=== PATIENT | female | born 2000 | race Caucasian/White ===

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

== ENCOUNTER → 2022-01-03 13:55 | Outpatient (BNVA) | payer MEDICAID, SELFPAY | PROVIDERS: PCP Family Medicine; Visit Provider Nurse Practitioner Family | DX: I96 Gangrene, not elsewhere classified (principal); L89.153 Pressure ulcer of sacral region, stage 3 | CPT/HCPCS: 11042 ==

== ENCOUNTER → 2022-01-24 14:00 | Outpatient (BNVA) | payer MEDICAID, SELFPAY | PROVIDERS: PCP Family Medicine; Visit Provider Nurse Practitioner Family | DX: I96 Gangrene, not elsewhere classified (principal); L89.154 Pressure ulcer of sacral region, stage 4 | CPT/HCPCS: 11042; A6219 ==

== ENCOUNTER 2022-02-12 12:09 | Emergency (ER) | payer MEDICAID, SELFPAY ==
[2022-02-12] VITALS (24 sets, daily range): BP systolic 99–114; BP diastolic 65–81; PULSE 102–115; RESP 16–20; O2SAT 98–100; BMI 13.8
--- NOTE | 2022-02-12 12:40 | XR_ITS ---
WS: [id number] Exam: XR chest 1V portable [id number] Date/Time of Exam: 02/12/2022 12:44 PM Reason For Exam: fever Comparison 10/25/2019. The lungs are fully expanded and clear. Cardiomediastinal silhouette is unremarkable. The thoracic sp ine fusion noted with the posterior rods and pedicle screws at all levels. Mid and lower thoracic sco liosis with right convexity. XR/XR chest 1V portable [id number] IMPRESSION: 1. No acute cardiopulmonary finding. No change.
--- NOTE | 2022-02-12 12:42 | W.ED.AMS ---
HPI - Altered Mental Status General: Chief Complaint: Altered Mental Status Stated Complaint: DECREASED LOC Time Seen by Provider: 02/12/22 12:37 Source: family, EMS and other (School nurse) History of Present Illness: History is provided by EMS, school nurse as well as later in the interview the patient's mother. 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 She states cooled RN contacted primary care doctor and then subsequently EMS because she was concerned about a change in the child's level of alertness and responsiveness today. State that she is normally very vigorous eater and also response to any kind of physical stimulus with yelling and screaming and today she did none of of those activities. He apparently has a longstanding history of a sacral wound and was dismissed from wound care recently because of displeasure displayed by the mother and some of the interactions at that facility. Mother arrived after a period of time and related that she seemed fine when she went to school today where she would not of sent her to school per mother. Dates that she did have a wet diaper this morning and she is had no fevers at home. No one else has been ill at home. Review of Systems Const: Denies: fever(s) or chills Resp: Denies: productive cough or non-productive cough GI: Denies: vomiting or diarrhea [facility] ED PFSH: Medical History (Updated 02/12/22 @ 15:39 by Sebastián Padilla DO) Cerebral palsy Seizures Social History Smoking and tobacco status: never smoked Physical Exam Narrative: Patient is a small underweight occasion female who is in a flexed position at elbows as well as flexed at the hips and knees. Does not respond to physical or verbal stimulus. Color appears normal. There is no ecchymosis, diaphoresis. Const: NUTRITIONAL APPEARANCE: overweight HENMT: COMMON NORMALS: normocephalic, atraumatic, Normal nasal mucous membranes and turbinates present and moist oral mucous membranes HEAD & SCALP: normocephalic and atraumatic NOSE: Normal nasal mucous membranes and turbinates present Eye: COMMON NORMALS: Equal, round and reactive pupils present and conjunctivae normal CONJUNCTIVA: Yes conjunctivae normal PUPIL: Yes Equal, round and reactive pupils present Neck/C-Spine: COMMON NORMALS: no lymphadenopathy, supple and no meningeal signs Chest: COMMONS NORMALS: normal inspection of the chest Resp: COMMON NORMALS: normal respiratory effort, No retractions, clear to auscultation bilaterally and percussion normal AUSCULTATION: clear to auscultation bilaterally PERCUSSION: percussion normal Cardio: COMMON NORMALS: regular rate, regular rhythm and Peripheral pulses 2+ throughout RATE: regular rate RHYTHM: regular rhythm PERIPHERAL PULSES: Peripheral pulses 2+ throughout GI: COMMON NORMALS: Soft to palpation and non-tender PALPATION: Yes Soft to palpation Back/Pelvis: SACRUM: other (She has a approximately 3 cm in diameter skin ulcer at the sacrum. There i) Extremity: COMMON NORMALS: capillary refill normal and no pedal edema Neuro: YULY COMA SCALE: other (Nonverbal. No verbal response to stimulus.) COMMON NORMALS: deep tendon reflexes 2+ bilaterally MENINGEAL SIGNS: Yes no meningeal signs Skin: COMMON NORMALS: no jaundice NARRATIVE SKIN EXAM: Skin ulcer at sacrum. Decreased skin turgor Course Reevaluation(s): Reevaluation #1: Patient is now back at her baseline. No new or focal findings. The patient is spontaneous eye opening and verbalization etc. and per mother this is her usual state of health. Reviewed current findings all which are reassuring and do not reveal any evidence of infection etc. at this time. Additional discussion with mother who seems very reasonable during our interaction states that mother wonders if she had a seizure because her clinical state at arrival here was similar to that that mother states she displays after a seizure and that she is poked postictal for period of time. The school RN denied any knowledge of seizure at her presentation but that certainly is a strong consideration given her lack of significant findings today and her recovery back to her baseline. Mother is comfortable and desires to take her home at this time and I see no reason that she should not do so as there is no evidence of ongoing emergency medical condition. Mother is planning on making arrangements to continue wound care on her own. Time: 15:35 Vital Signs: Vital signs: Vital Signs Pulse Rate 102 H 02/12/22 13:01 Respiratory Rate 16 02/12/22 13:01 Blood Pressure 99/81 02/12/22 15:10 Pulse Oximetry 99 02/12/22 15:10 Oxygen Delivery Me thod 02/12/22 13:01 MDM - Altered Mental Status Medical Decision Making Patient with chronic disability due to cerebral palsy exported to our facility from her school with concerns about alteration in her mental status. Her work-up in the emergency department was unrevealing for any findings to suggest infection or other concerns. She recovered back to her baseline without any intervention other than IV fluids. It is mother speculation is certainly reasonable that she may have been postictal as she is has a history of seizure disorder as well. Mother states that she has been very faithful to all her medications including her anticonvulsants but she does occasionally have seizures despite that. She also has a skin ulcer consistent with a pressure ulcer on her sacrum and her without any evidence of infection at this time. Mother is planning on continuing wound care. She is stable at this time to be discharged and mother voiced understanding and also voices acknowledgment of return precautions. Should additionally note that the mother's been very straightforward and cooperative and reasonable with my interactions. She does tend to be somewhat loud and direct and some may perceive that is being argumentative but I did not find that to be an issue during our interactions. Medical Records I reviewed the patient's medical records. Lab Data I reviewed the patient's lab results. 02/12/22 12:29 02/12/22 12:29 Radiology Impressions Chest X-Ray 02/12/22 12:40 IMPRESSION: 1. No acute cardiopulmonary finding. No change. Laboratory Results WBC 9.6 10^3/uL (4.5-13.0) 02/12/22 12: RBC 4.16 10^6/uL (4.1-5.3) 02/12/22 12:29 Hgb 12.4 g/dL (11.5-15.3) 02/12/22 12:29 Hct 38.2 % (37.0-47.0) 02/12/22 12:29 MCV 91.8 fl (81-99) 02/12/22 12: MCH 29.8 pg (28.0-34.0) 02/12/22 12: MCHC 32.5 g/dL (30.0-36.0) 02/12/22 12: RDW 12.5 % (12.1-15.1) 02/12/22 12:29 Plt Count 262 10^3/cmm (130-400) 02/12/22 12: MPV 8.4 fL (7.4-10.4) 02/12/22 12: Neut % (Auto) 75.0 % 02/12/22 12: Lymph % (Auto) 15.8 % 02/12/22 12: [place] % (Auto) 7.7 % 02/12/22 12: Eos % (Auto) 0.8 % 02/12/22 12: Baso % (Auto) 0.3 % 02/12/22 12: Neut # (Auto) 7.19 10^3/uL (1.8-8.0) 02/12/22 12: Lymph # (Auto) 1.5 10^3/uL (1.5-6.5) 02/12/22 12: [place] # (Auto) 0.7 10^3/uL (0.2-0.9) 02/12/22 12: Eos # (Auto) 0.1 10^3/uL (0.0-0.8) 02/12/22 12: Baso # (Auto) 0.0 10^3/uL (0.0-0.1) 02/12/22 12: Nucleated RBC % (auto) 0 % 02/12/22 12: Nucleated RBCs # 0.0 /100WBC 02/12/22 12: Sodium 141 mmol/L (136-145) 02/12/22 12: Potassium 3.8 mmol/L (3.5-5.1) 02/12/22 12: Chloride 105 mmol/L (98-107) 02/12/22 12: Carbon Dioxide 26 mmol/L (22-29) 02/12/22 12: Anion Gap 13.8 (5-19) 02/12/22 12: BUN 4 mg/dL (6-20) L 02/12/22 12: Creatinine 0.4 mg/dL (0.5-0.9) L 02/12/22 12: GFR Calculation 205.6 mL/min (90-130) H 02/12/22 12: Glucose 84 mg/dL (65-115) 02/12/22 12: Calculated Osmolality 288 mOsm/kg (285-295) 02/12/22 12:29 Calcium 9.3 mg/dL (8.5-10.5) 02/12/22 12:29 Total Bilirubin 0.2 mg/dL (0.15-1.2) 02/12/22 12:29 AST 16 U/L (0-32) 02/12/22 12:29 ALT 13 U/L (0-33) 02/12/22 12:29 Alkaline Phosphatase 117 U/L (35-105) H 02/12/22 12:29 Total Protein 7.7 g/dL (6.6-8.7) 02/12/22 12:29 Albumin 3.9 g/dL (3.5-5.2) 02/12/22 12:29 Globulin 3.8 g/dL (1.3-4.6) 02/12/22 12:29 Urine Color Yellow (Yellow) 02/12/22 13:20 Urine Appearance Clear (CLEAR) 02/12/22 13:20 Urine pH 7 (5-7) 02/12/22 13:20 Ur Specific [place] 1.010 (1.005-1.030) 02/12/22 13:20 Urine Protein Neg (Negative) 02/12/22 13:20 Urine Glucose (UA) Norm (Normal) 02/12/22 13:20 Urine Ketones Negative (Negative) 02/12/22 13:20 Urine Blood Neg (Negative) 02/12/22 13:20 Urine Nitrate Negative (Negative) 02/12/22 13:20 Urine Bilirubin Neg (Negative) 02/12/22 13:20 Urine Urobilinogen Norm mg/dL (Negative) 02/12/22 13:20 Ur Leukocyte Esterase Negative (Negative) 02/12/22 13:20 Influenza Type A Ag negative (Negative) 02/12/22 13:06 Influenza Type B Ag negative (Negative) 02/12/22 13:06 SARS-CoV-2 Ag (Rapid) Negative (Negative) 02/12/22 13:06 Discharge Plan Discharge Patient Disposition: Home Clinical Impression: Cerebral palsy, Seizures, Pressure ulcer of sacrum Condition: Stable Prescriptions: No Action Saline Wound Wash 0.9 % solution 500 ml miscellaneous BID Qty: 210 2RF acetaminophen [Children's Tylenol] 160 mg/5 mL Suspension 160 - 320 mg PO Q6H PRN (Reason: Pain) baclofen 10 mg tablet See Rx Instructions .ROUTE .COMPLEX Rx Instructions: 15mg po every am and 20mg po every evening medroxyprogesterone 150 mg/mL suspension 150 mg IM .EVERY 3 MONTHS clonazepam 0.5 mg tablet,disintegrating See Rx Instructions .ROUTE .COMPLEX Rx Instructions: 1 tab po daily as needed for seizure or more than 3 seizures in one hour as needed cholecalciferol (vitamin D3) [D-Vi-Marguerite] 10 mcg/mL (400 unit/mL) drops 10 mcg PO BID clobazam 10 mg tablet 10 mg PO BID Epidiolex 100 mg/mL solution 300 mg PO BID Rx Instructions: ([id number]) Valtoco 10 mg/spray (0.1 mL) spray,non-aerosol See Rx Instructions .ROUTE .COMPLEX Rx Instructions: one spray into one nostril for prolonged seizures three minutes or more than 3 seizures per hour lactulose 10 gram/15 mL Solution 15 ml PO BID Discharge Orders: Discharge ED (Routine); Ordered 02/12/22 Ordered By: Sebastián Padilla Referrals: Eden Lackey DO [Primary Care Provider] - Discharge Diet: Usual diet Discharge Activity: Resume usual activity Patient Instructions: Opioid Safety, Pain Management Activity Restrictions/Additional Instructions: Follow-up with wound care as you have already planned. Continue all usual medications. If your child develops fever, persistent seizures, or any concerns at any time return to this or the nearest emergency department. Coding Level of Care Code ED Siebel Architect for Mari Verdugo Exam Comprehensive
--- NOTE | 2022-02-12 12:52 | PC.NURSE ---
Pt arrived via ems, mother at bedside after 20 minutes. Pt mother is aggressive with staff stating all the doctors before and people never listened mother was redirected and staff continue to be met with aggressive words and demeaning speech.
[2022-02-12 12:55] LABS: Basophils % 0.3 %; Eosinophils # 0.1 10^3/uL (0.0-0.8); Eosinophils % 0.8 %; Hematocrit 38.2 % (37.0-47.0); Hemoglobin 12.4 g/dL (11.5-15.3); Lymphocytes # 1.5 10^3/uL (1.5-6.5); Lymphocytes % 15.8 %; Mean Corpuscular HGB Conc 32.5 g/dL (30.0-36.0); Mean Corpuscular Hemoglobin 29.8 pg (28.0-34.0); Mean Corpuscular Volume 91.8 fl (81-99); Mean Platelet Volume 8.4 fL (7.4-10.4); Monocytes # 0.7 10^3/uL (0.2-0.9); Monocytes % 7.7 %; Neutrophils # 7.19 10^3/uL (1.8-8.0); Nucleated Red Blood Cells % 0 %; Platelet Count 262 10^3/cmm (130-400); Red Blood Count 4.16 10^6/uL (4.1-5.3); Red Cell Distribution Width 12.5 % (12.1-15.1); White Blood Count 9.6 10^3/uL (4.5-13.0)
[2022-02-12] MEDS: lactated ringers 500 ML 999 ML IV (13:06)
[2022-02-12 13:13] LABS: Alanine Aminotransferase 13 U/L (0-33); Albumin Level 3.9 g/dL (3.5-5.2); Alkaline Phosphatase 117 U/L (35-105); Anion Gap 13.8 (5-19); Aspartate Amino Transferase 16 U/L (0-32); Blood Urea Nitrogen 4 mg/dL (6-20); Calcium 9.3 mg/dL (8.5-10.5); Carbon Dioxide 26 mmol/L (22-29); Chloride 105 mmol/L (98-107); Creatinine Clr Calc Pharmacy 86.6618; Globulin 3.8 g/dL (1.3-4.6); Glomerular Filtration Rate 205.6 mL/min (90-130); Glucose 84 mg/dL (65-115); Osmolality Calculated 288 mOsm/kg (285-295); Potassium 3.8 mmol/L (3.5-5.1); Sodium 141 mmol/L (136-145); Total Bilirubin 0.2 mg/dL (0.15-1.2); Total Protein 7.7 g/dL (6.6-8.7)
[2022-02-12 13:32] LABS: Add Urine Microscopic? NO; Charge for UA Resulting for Rev
[2022-02-12 13:40] LABS: Bilirubin Urine Neg (Negative); Blood Urine Neg (Negative); Glucose Urine UA Norm (Normal); Ketones Urine Negative (Negative); Leukocyte Esterase Urine Negative (Negative); Nitrate Urine Negative (Negative); Protein Urine Neg (Negative); Urine Appearance Clear (CLEAR); Urine Color Yellow (Yellow); Urobilinogen Urine Norm (Negative); pH Urine 7 (5-7)
[2022-02-12 13:45] LABS: Influenza A by IFA negative (Negative); Influenza B by IFA negative (Negative)
[2022-02-12 14:25] LABS: SARS Covid-2 Antigen Negative (Negative)
== END 2022-02-12 16:00 | disposition home or self-care (01) ==
PROVIDERS: Emergency Provider Emergency Medicine; PCP Family Medicine
DX: G80.9 Cerebral palsy, unspecified (principal); R56.9 Unspecified convulsions; L89.159 Pressure ulcer of sacral region, unspecified stage
CPT/HCPCS: 71045; 80053; 81003; 85025; 87040; 87426; 87804; 96360; 99284; J7120

== ENCOUNTER 2022-02-20 11:10 | Emergency (ER) | payer MEDICAID, SELFPAY ==
[2022-02-20 11:15] VITALS: BP 82/57; PULSE 117; RESP 19; TEMP 36.8; O2SAT 99; BMI 16.9
[2022-02-20 11:20] VITALS: BP 92/62; PULSE 109; RESP 16; TEMP 37; O2SAT 97
--- NOTE | 2022-02-20 11:39 | CTR_ITS ---
PROCEDURE INFORMATION: Exam: CT Abdomen And Pelvis With Contrast Exam date and time: 02/20/2022 2:01 PM Age: 21 years old Clinical indication: Bloating; Prior surgery; Additional info: Abdominal distension TECHNIQUE: Imaging protocol: Computed tomography of the abdomen and pelvis with contrast. Radiation optimization: All CT scans at this facility use at least one of these dose optimization techniques: automated exposure control; mA and/or kV adjustment per patient size (includes targeted exams where dose is matched to clinical indication); or iterative reconstruction. Contrast material: OMNI 350; Contrast volume: 60 ml; Contrast route: INTRAVENOUS (IV); COMPARISON: CR XR hip BI 3-4V wo/w pel [id number] 09/07/2020 12:44 PM RADIATION DOSE METRICS: Total DLP (mGy-cm): 234.72 FINDINGS: Lungs: There is some streaky linear densities along the lower paravertebral gutters likely secondary to linear atelectasis. Liver: Normal. No mass. Gallbladder and bile ducts: Normal. No calcified stones. No ductal dilation. Pancreas: Pancreas not well discerned due to limitations of the study but no abnormalities detected. Spleen: Normal. No splenomegaly. Adrenal glands: Normal. No mass. Kidneys and ureters: Small cortical cyst superior pole left kidney likely benign otherwise kidneys are unremarkable. Stomach and bowel: There is a large amount of stool throughout the colon which is somewhat distended and likely indicating some degree of constipation. Appendix: No evidence of appendicitis. Intraperitoneal space: Unremarkable. No free air. No significant fluid collection. Vasculature: Unremarkable. No abdominal aortic aneurysm. Lymph nodes: Unremarkable. No enlarged lymph nodes. Urinary bladder: There is a Perez catheter balloon within the urinary bladder which is mildly distended. Reproductive: Unremarkable as visualized. Bones/joints: Assist assessment is somewhat limited due to paucity of body fat and extensive streak artifact emanating from patient's spinal hardware. Moderate S scoliosis of the thoracolumbar spine convex to the patient's right stabilized by spinal rods and transpedicular screws. There is a 4 x 3 cm fluid collection in the right lower pelvis that may represent fluid within an expanded endometrial cavity of the uterus which is deviated to the patient's right and should be further assessed on pelvic ultrasound exam. Soft tissues: Unremarkable. CT/CT abdomen pelvis w con* [id number] IMPRESSION: 1. Technically limited examination. No acute abdominal findings. 2. Large amount of retained stool throughout the colon likely reflecting some degree of constipation. 3. 4 x 3 cm fluid collection right lower pelvis that may represent fluid within a dilated uterine cavity for which follow-up nonemergent pelvic ultrasound recommended for further assessment. 4. Scoliosis treated with prior spinal instrumentation. 5. Mildly distended urinary bladder with Perez catheter balloon present. Please check for patency.
--- NOTE | 2022-02-20 11:41 | W.ED.FEMALGU ---
HPI - Female Genitourinary General: Chief complaint: Urogenital-Female Stated complaint: Trouble urinating Time Seen by Provider: 02/20/22 11:41 History of Present Illness: 21-year-old female who is nonverbal due to cerebral palsy. History is obtained from her mother. The patient has had abdominal distention since yesterday. Mom states she had a large wet diaper last night but has not produced any urine since last night. She does have history of constipation and takes lactulose but mom tried to digitally disimpact her this morning without any stool in the rectum. With examination, the child does cry. She is not had a fever. She said no vomiting. Review of Systems General: Reports: ROS unobtainable due to medical condition PFSH ED PFSH: Medical History (Updated 02/20/22 @ 17:22 by Whitney Tony MD) Cerebral palsy Seizures Social History Smoking and tobacco status: never smoked Physical Exam Const: COMMON NORMALS: alert HENMT: OTHER: Head is atraumatic. Mucous membranes are moist. Conjunctiva pink Eye: COMMON NORMALS: no scleral icterus GENERAL EYE: appearance normal, both eyes and all related structures Neck/C-Spine: COMMON NORMALS: supple and no JVD Chest: COMMONS NORMALS: normal inspection of the chest and normal palpation of entire chest wall Resp: COMMON NORMALS: normal respiratory effort, No use of accessory muscles and clear to auscultation bilaterally AUSCULTATION: clear to auscultation bilaterally Cardio: COMMON NORMALS: no JVD and regular rhythm RATE: tachycardic RHYTHM: regular rhythm GI: INSPECTION: Yes abdominal distension and Yes other (Skin mottled) AUSCULTATION: Yes Absent bowel sounds PALPATION: Yes Firmness to palpation present (GI), Yes Tenderness to palpation present (GI) and Yes Rigid due to palpation PERCUSSION: tympanic to percussion RECTAL EXAM: normal sphincter tone and other (No stool in rectum) Back/Pelvis: COMMON NORMALS: thoracic and lumbar spine normal to inspection Extremity: OTHER: Extremity contractures Neuro: SENSORIUM/ORIENTATION: Yes alert Skin: COMMON NORMALS: no rashes or lesions noted GENERAL SKIN EXAM: no rashes or lesions noted OTHER: Sacral decubitus ulcer Procedures Catheter Insertion (Urinary) Date of insertion: 02/20/22 Time of insertion: 14:45 Reason for placing: Yes (Urinary retention) Bladder scan/ultrasound used before catheterization: Yes (650 cc) Estimated amount of urine (mLs): 650 Antiseptic solution prep: Povidone-Iodine Catheter type/location: Urethral Size (Bangladeshi): 14 Catheter balloon size (mL): 5 Catheter balloon amount: 5 Results: successfully catheterized-immediate flow Procedure performed: without complications Complications: None Course ED course: Patient's had an IV placed in the ER and labs obtained. She has been given an IV fluid bolus. Bladder scan did show 650 cc bladder volume. Perez catheter was placed. Laboratory studies, white blood cell count is normal. Electrolytes are normal. BUN 4, creatinine 0.3. CT scan of the abdomen and pelvis was obtained CT shows changes consistent with constipation. She does have a probable cyst on the right ovary as well as some retained urine in the bladder. Urinalysis is pending at this time. Reevaluation(s): Reevaluation #1: Perez catheter drained approximately 500 cc of urine. Patient seems uncomfortable. She was given IV morphine prior to catheter placement. Reevaluation #2: Urinalysis shows UTI. Will send urine culture. The patient has been given Rocephin 2 g IV in the ER. Plan for discharge on Keflex 250 per 5 to give her 10 mL twice daily x10 days. Have also sent her home with a bottle of GoLytely and instructed her to give her 1 glass of that every hour until it is gone. She should continue the lactulose daily as well as add MiraLAX 1 capful daily. She needs to make sure she is drinking plenty of fluids. Return precautions have been discussed. At this time, I feel she stable for discharge home. Vital Signs: Vital signs: Vital Signs Temperature 98.6 F 02/20/22 11:20 Pulse Rate 109 H 02/20/22 11:20 Respiratory Rate 16 02/20/22 14:56 Blood Pressure 92/62 02/20/22 11:20 Pulse Oximetry 97 02/20/22 11:20 Oxygen Delivery Me thod 02/20/22 11:20 MDM - Female Medical Decision Making 21-year-old female with history of pathology presents with no urine output and abdominal distention. On examination, her abdomen is rigid and distended. Tympanic to percussion. She is diffusely tender. His abdominal examination is concerning for bowel obstruction versus perforation. She could certainly have urine retention. We will do a catheterized urinalysis, place an IV give her IV fluids and obtain labs and a CT of her abdomen and pelvis. Differential Diagnosis Likely abdominal pain, constipation, diverticulitis and small bowel obstruction Medical Records I reviewed the patient's medical records. Lab Data 02/20/22 12:45 02/20/22 12:45 Radiology Impressions Abdomen/Pelvis CT 02/20/22 11:39 IMPRESSION: 1. Technically limited examination. No acute abdominal findings. 2. Large amount of retained stool throughout the colon likely reflecting some degree of constipation. 3. 4 x 3 cm fluid collection right lower pelvis that may represent fluid within a dilated uterine cavity for which follow-up nonemergent pelvic ultrasound recommended for further assessment. 4. Scoliosis treated with prior spinal instrumentation. 5. Mildly distended urinary bladder with Perez catheter balloon present. Please check for patency. Laboratory Results WBC 11.1 10^3/uL (4.5-13.0) 02/20/22 12:45 RBC 4.16 10^6/uL (4.1-5.3) 02/20/22 12:45 Hgb 12.3 g/dL (11.5-15.3) 02/20/22 12:45 Hct 37.7 % (37.0-47.0) 02/20/22 12:45 MCV 90.6 fl (81-99) 02/20/22 12:45 MCH 29.6 pg (28.0-34.0) 02/20/22 12:45 MCHC 32.6 g/dL (30.0-36.0) 02/20/22 12:45 RDW 12.8 % (12.1-15.1) 02/20/22 12:45 Plt Count 269 10^3/cmm (130-400) 02/20/22 12:45 MPV 8.1 fL (7.4-10.4) 02/20/22 12:45 Neut % (Auto) 76.2 % 02/20/22 12:45 Lymph % (Auto) 12.4 % 02/20/22 12:45 Shackelford % (Auto) 9.6 % 02/20/22 12:45 Eos % (Auto) 1.0 % 02/20/22 12:45 Baso % (Auto) 0.3 % 02/20/22 12:45 Neut # (Auto) 8.44 10^3/uL (1.8-8.0) H 02/20/22 12:45 Lymph # (Auto) 1.4 10^3/uL (1.5-6.5) L 02/20/22 12:45 Shackelford # (Auto) 1.1 10^3/uL (0.2-0.9) H 02/20/22 12:45 Eos # (Auto) 0.1 10^3/uL (0.0-0.8) 02/20/22 12:45 Baso # (Auto) 0.0 10^3/uL (0.0-0.1) 02/20/22 12:45 Nucleated RBC % (auto) 0 % 02/20/22 12:45 Nucleated RBCs # 0.0 /100WBC 02/20/22 12:45 Sodium 137 mmol/L (136-145) 02/20/22 12:45 Potassium 3.9 mmol/L (3.5-5.1) 02/20/22 12:45 Chloride 104 mmol/L (98-107) 02/20/22 12:45 Carbon Dioxide 26 mmol/L (22-29) 02/20/22 12:45 Anion Gap 10.9 (5-19) 02/20/22 12:45 BUN 4 mg/dL (6-20) L 02/20/22 12:45 Creatinine 0.3 mg/dL (0.5-0.9) L 02/20/22 12:45 GFR Calculation 286.6 mL/min (90-130) H 02/20/22 12:45 Glucose 81 mg/dL (65-115) 02/20/22 12:45 Calculated Osmolality 280 mOsm/kg (285-295) L 02/20/22 12:45 Lactate 0.8 mmol/L (0.5-2.2) 02/20/22 12:45 Calcium 9.2 mg/dL (8.5-10.5) 02/20/22 12:45 Total Bilirubin 0.2 mg/dL (0.15-1.2) 02/20/22 12:45 AST 15 U/L (0-32) 02/20/22 12:45 ALT 13 U/L (0-33) 02/20/22 12:45 Alkaline Phosphatase 111 U/L (35-105) H 02/20/22 12:45 Total Protein 8.1 g/dL (6.6-8.7) 02/20/22 12:45 Albumin 3.9 g/dL (3.5-5.2) 02/20/22 12:45 Globulin 4.2 g/dL (1.3-4.6) 02/20/22 12:45 Lipase 22 U/L (13-60) 02/20/22 12:45 HCG, Qual Negative (Negative) 02/20/22 13:40 Urine Color Jenna (Yellow) 02/20/22 13:40 Urine Appearance Cloudy (CLEAR) A 02/20/22 13:40 Urine pH 7 (5-7) 02/20/22 13:40 Ur Specific Jewett 1.015 (1.005-1.030) 02/20/22 13:40 Urine Protein Neg (Negative) 02/20/22 13:40 Urine Glucose (UA) Norm (Normal) 02/20/22 13:40 Urine Ketones Negative (Negative) 02/20/22 13:40 Urine Blood Neg (Negative) 02/20/22 13:40 Urine Nitrate Negative (Negative) 02/20/22 13:40 Urine Bilirubin Neg (Negative) 02/20/22 13:40 Urine Urobilinogen Norm mg/dL (Negative) 02/20/22 13:40 Ur Leukocyte Esterase 1+ (Negative) H 02/20/22 13:40 Urine RBC None /hpf (0-2) 02/20/22 13:40 Urine WBC 25-40 /hpf (0-5) H 02/20/22 13:40 Ur Squamous Epith Cells 0-4 /hpf (0-5) H 02/20/22 13:40 Amorphous Sediment Not Reportable 02/20/22 13:40 Urine Bacteria 4+ /hpf (NONE) H 02/20/22 13:40 Discharge Plan Discharge Patient Disposition: Home Clinical Impression: Urinary tract infection, Acute urinary retention, Constipation Condition: Stable Prescriptions: New cephalexin 250 mg/5 mL suspension for reconstitution 500 mg PO BID 10 Days Qty: 200 0RF No Action Saline Wound Wash 0.9 % solution 500 ml miscellaneous BID Qty: 210 2RF acetaminophen [Children's Tylenol] 160 mg/5 mL Suspension 160 - 320 mg PO Q6H PRN (Reason: Pain) baclofen 10 mg tablet See Rx Instructions .ROUTE .COMPLEX Rx Instructions: 15mg po every am and 20mg po every evening medroxyprogesterone 150 mg/mL suspension 150 mg IM .EVERY 3 MONTHS clonazepam 0.5 mg tablet,disintegrating See Rx Instructions .ROUTE .COMPLEX Rx Instructions: 1 tab po daily as needed for seizure or more than 3 seizures in one hour as needed cholecalciferol (vitamin D3) [D-Vi-Marguerite] 10 mcg/mL (400 unit/mL) drops See Rx Instructions .ROUTE .COMPLEX Rx Instructions: DIRECTED clobazam 10 mg tablet 10 mg PO BID Epidiolex 100 mg/mL solution 300 mg PO BID Rx Instructions: (4ma=329dt) Valtoco 10 mg/spray (0.1 mL) spray,non-aerosol See Rx Instructions .ROUTE .COMPLEX Rx Instructions: one spray into one nostril for prolonged seizures three minutes or more than 3 seizures per hour lactulose 10 gram/15 mL Solution 15 ml PO BID Discharge Orders: Discharge ED (Routine); Ordered 02/20/22 Ordered By: Whitney Tony Referrals: Eden Lackey DO [Primary Care Provider] - Discharge Diet: Advance as tolerated Discharge Activity: Resume usual activity Patient Instructions: Constipation (ED), Opioid Safety, Pain Management, Urinary Retention, Urinary Tract Infection - Women Activity Restrictions/Additional Instructions: give her one glass of golytle every hour until gone Push fluids Continue lactulose Give miralax - 1 cap full daily give her the antibiotics twice a day until gone return if her symptoms worsen follow up next week with her primary care Coding Level of Care Code ED Splicer Helper for Mari Fwd Exam Comprehensive
[2022-02-20] MEDS: sodium chloride 0.9% 500 ML IV (12:50)
[2022-02-20 12:56] LABS: Basophils % 0.3 %; Eosinophils # 0.1 10^3/uL (0.0-0.8); Hematocrit 37.7 % (37.0-47.0); Hemoglobin 12.3 g/dL (11.5-15.3); Lymphocytes # 1.4 10^3/uL (1.5-6.5); Lymphocytes % 12.4 %; Mean Corpuscular HGB Conc 32.6 g/dL (30.0-36.0); Mean Corpuscular Hemoglobin 29.6 pg (28.0-34.0); Mean Corpuscular Volume 90.6 fl (81-99); Mean Platelet Volume 8.1 fL (7.4-10.4); Monocytes # 1.1 10^3/uL (0.2-0.9); Monocytes % 9.6 %; Neutrophils # 8.44 10^3/uL (1.8-8.0); Neutrophils % 76.2 %; Nucleated Red Blood Cells % 0 %; Platelet Count 269 10^3/cmm (130-400); Red Blood Count 4.16 10^6/uL (4.1-5.3); Red Cell Distribution Width 12.8 % (12.1-15.1); White Blood Count 11.1 10^3/uL (4.5-13.0)
[2022-02-20 13:17] LABS: Alanine Aminotransferase 13 U/L (0-33); Albumin Level 3.9 g/dL (3.5-5.2); Alkaline Phosphatase 111 U/L (35-105); Anion Gap 10.9 (5-19); Aspartate Amino Transferase 15 U/L (0-32); Blood Urea Nitrogen 4 mg/dL (6-20); Calcium 9.2 mg/dL (8.5-10.5); Carbon Dioxide 26 mmol/L (22-29); Chloride 104 mmol/L (98-107); Globulin 4.2 g/dL (1.3-4.6); Glomerular Filtration Rate 286.6 mL/min (90-130); Glucose 81 mg/dL (65-115); Lactate (Lactic Acid level) 0.8 mmol/L (0.5-2.2); Lipase 22 U/L (13-60); Osmolality Calculated 280 mOsm/kg (285-295); Potassium 3.9 mmol/L (3.5-5.1); Sodium 137 mmol/L (136-145); Total Bilirubin 0.2 mg/dL (0.15-1.2); Total Protein 8.1 g/dL (6.6-8.7)
[2022-02-20 13:50] LABS: HCG Qualitative Urine. Negative (Negative)
[2022-02-20] MEDS: iohexol 350 mg/mL 500 mL Btl (per mL) IV (14:09)
[2022-02-20 14:56] VITALS: RESP 16
[2022-02-20] MEDS: morphine 4 mg/mL SDV 1 mL 2 MG IVP (14:56)
[2022-02-20 16:00] VITALS: BP 90/49; PULSE 89; RESP 16; O2SAT 94
[2022-02-20 16:35] LABS: Add Urine Microscopic? YES; Bilirubin Urine Neg (Negative); Blood Urine Neg (Negative); Glucose Urine UA Norm (Normal); Ketones Urine Negative (Negative); Leukocyte Esterase Urine 1+ (Negative); Nitrate Urine Negative (Negative); Protein Urine Neg (Negative); Specific Gravity, Urine 1.015 (1.005-1.030); Urine Appearance Cloudy (CLEAR); Urine Color Amber (Yellow); Urobilinogen Urine Norm (Negative); WBC Urine 25-40 /hpf (0-5); pH Urine 7 (5-7)
[2022-02-20 16:36] LABS: Add Urine Culture? Yes; Bacteria Urine 4+ /hpf; Squamous Epithelial Cell Urine 0-4 /hpf (0-5)
[2022-02-20 17:00] VITALS: BP 92/49; PULSE 105; RESP 16; O2SAT 94
[2022-02-20] MEDS: cefTRIAXone 2,000 MG in sodium chloride 0.9% (plus) 50 ML 100 MG IV (17:25)
[2022-02-20 18:44] VITALS: BP 103/65; PULSE 105; RESP 16; O2SAT 94
[2022-02-20] MEDS: peg /e-lyte soln 4,000 mL Btl 1500 ML PO (18:44)
== END 2022-02-20 18:49 | disposition home or self-care (01) ==
PROVIDERS: Emergency Provider Emergency Medicine; PCP Family Medicine
DX: N39.0 Urinary tract infection, site not specified (principal); R33.9 Retention of urine, unspecified; K59.00 Constipation, unspecified; G80.9 Cerebral palsy, unspecified
CPT/HCPCS: 74177; 80053; 81001; 81025; 83605; 83690; 85025; 87086; 96374; 96375; 99285; J0696; J2270; J7040; Q9967

== ENCOUNTER 2022-04-16 15:34 | Outpatient (CLI) | payer MEDICAID, SELFPAY ==
--- NOTE | 2022-04-16 | US_ITS ---
WS: [id number] TRANSABDOMINAL PELVIC ULTRASOUND HISTORY: CT OF PELVIS ABNORMAL COMPARISON: CT 02/20/2022 Extremely limited difficult evaluation of the pelvic structures due to patient's body habitus. Unable to perform transvaginal imaging. There is a thick walled structure in the RIGHT adnexa which corresponds to the finding on the recent CT. Hypoechoic central region with thick wall. This area measures 4.6 x 3.2 x 4.2 cm. This may be the uterus which is deviated significantly to the RIGHT. Potentially could represent an ovarian mass. An additional normal sized uterus is not identified. Neither ovary is definitely visualized. US/US pelvic complete* [id number] IMPRESSION: 1. Extremely limited evaluation of the pelvic structures. 2. There is a thick walled complex mass in the RIGHT adnexa measuring 4.6 x 3. 2 x 4.2 cm. Differential includes uterus deviated to the RIGHT with a distended endometrial canal with retained products of menses. Abnormal RIGHT ovary withi n the differential if this is ovarian in etiology. A normal RIGHT ovary or LEFT ovary is not identified.
--- NOTE | 2022-04-16 | US_ITS ---
WS: [id number] URINARY BLADDER ULTRASOUND HISTORY: URINARY RETENTION COMPARISON: None available. Urinary bladder is moderately well distended. There is a large amount of debris within the urinary bl adder. Sediment is along the posterior bladder wall which is mobile. There are also floating foci wit hin the urine. Bladder Wall Thickness: 0.5 cm. Bladder wall is diffusely prominent. Bladder Prevoid: 9.6 cm x 7.5 cm x 5.1 cm. Prevoid volume: 193 ml. Bladder Postvoid: Unable to void. US/US bladder [id number] IMPRESSION: 1. Moderately well distended urinary bladder with a large amount of dependent debris and sedimentation. May be due to long-standing incomplete emptying of th e bladder or infection. 2. Patient was unable to void.
== END 2022-04-16 15:35 | disposition home or self-care (01) ==
PROVIDERS: PCP Family Medicine; Visit Provider Family Medicine
DX: R33.9 Retention of urine, unspecified (principal)
CPT/HCPCS: 76856; 76857

== ENCOUNTER → 2022-04-25 13:54 | Outpatient (BNVA) | payer MEDICAID, SELFPAY | PROVIDERS: PCP Family Medicine; Visit Provider Student in an Organized Health Care Education/Training Program | DX: L89.159 Pressure ulcer of sacral region, unspecified stage (principal); M86.9 Osteomyelitis, unspecified | CPT/HCPCS: 36415; 85651; 86140; 99204 ==

== ENCOUNTER 2022-08-25 20:12 | Emergency (ER) | payer MEDICAID, SELFPAY ==
[2022-08-25] VITALS (7 sets, daily range): BP systolic 125–148; BP diastolic 73–98; PULSE 62–120; RESP 15–34; TEMP 34.7; O2SAT 97–100; BMI 21.0
--- NOTE | 2022-08-25 20:24 | XRR_ITS ---
PROCEDURE INFORMATION: Exam: XR Chest Exam date and time: 08/25/2022 8:28 PM Age: 21 years old Clinical indication: Device placement; Other: Intubation; Additional info: Post intubation TECHNIQUE: Imaging protocol: Radiologic exam of the chest. Views: 1 view. COMPARISON: CR XR chest 1V portable [id number] 02/12/2022 12:49 PM FINDINGS: Tubes, catheters and devices: ET tube tip is obscured by the thoracic posterior fusion hardware however terminates approximately 16 mm superior to the audra. Distal aspect of the G-tube is positioned in the left upper quadrant abdomen in the expected location of the stomach. Lungs: There is opacification at the left lung apex. Pleural spaces: Unremarkable. No pleural effusion. No pneumothorax. Heart/Mediastinum: Unremarkable. No cardiomegaly. Bones/joints: Thoracolumbar scoliotic curvatures with extensive posterior thoracolumbar fusion hardware. XR/XR chest 1V portable [id number] IMPRESSION: 1. ET tube tip is obscured by the thoracic posterior fusion hardware however terminates approximately 16 mm superior to the audra. 2. There is opacification at the left lung apex likely representing pneumonia.
--- NOTE | 2022-08-25 20:26 | W.ED.CPR ---
HPI - CPR General: Chief Complaint: Cardiac Arrest/CPR Stated Complaint: Post Code Blue Time Seen by Provider: 08/25/22 20:24 Limitations: other (Cardiac arrest) History of Present Illness: 21-year-old female with history of nonverbal cerebral palsy presenting to the emergency department postcardiac arrest with ROSC in the field. Per EMS report patient started choking on chicken noodle soup and had respiratory distress and subsequently cardiac arrest. taxicab dispatcher provided instructions for family to perform CPR and CPR was in progress upon EMS arrival. They found the patient to be in a bradycardic PEA. Patient reportedly received seven 1 mg doses of epinephrine, was defibrillated 2 times, 1 mg atropine. Rhythm progression reported to be bradycardic PEA, fine V-fib, asystole, bradycardia, sinus tachycardia upon arrival at the emergency department. History is otherwise limited by acuity of condition and patient's current medical state without family at bedside initially. Limited supplemental information provided by the patient's mother upon her arrival. She is more argumentative than helpful. She does report that patient had seizure-like episode after she began choking. Bystander CPR performed: Yes Number of shocks delivered: 2 Initial findings in the field: unresponsive, no respirations, no pulse and PEA ROSC in the field: Yes Treatments prior to arrival: other airway device, chest compressions, defibrillated shocks # (2), epinephrine mgs # (7) and atropine mgs # (1) Review of Systems General: Reports: ROS unobtainable due to medical condition, ROS unobtainable due to mental status and Other (iGel in place) [facility] ED PFSH: Medical History (Updated 08/26/22 @ 03:07 by Miguel Angel Handy MD) Cerebral palsy Seizures Social History Smoking and tobacco status: never smoked Physical Exam Const: GENERAL APPEARANCE: ill appearing and frail appearing OTHER: Underdeveloped for age. HENMT: COMMON NORMALS: normocephalic and atraumatic HEAD & SCALP: normocephalic and atraumatic Eye: COMMON NORMALS: Equal, round and reactive pupils present and conjunctivae normal CONJUNCTIVA: Yes conjunctivae normal SCLERA: sclerae normal PUPIL: Yes Equal, round and reactive pupils present Neck/C-Spine: COMMON NORMALS: supple GENERAL: Yes trachea midline Chest: OTHER: Contusion/abrasion to the chest likely consistent with CPR. Resp: OTHER: [id number] ventilations in progress with chest rise and bilateral lung sounds Cardio: COMMON NORMALS: regular rhythm RATE: tachycardic RHYTHM: regular rhythm OTHER: Peripheral pulses palpable GI: COMMON NORMALS: Soft to palpation PALPATION: Yes Soft to palpation and No Tenderness to palpation present (GI) Back/Pelvis: OTHER: Pressure ulcer which is apparently known, dressing appears reasonably tidy. No purulent drainage or evidence of superimposed acute infection. Extremity: NARRATIVE EXTREMITY EXAM: Left shoulder what appears to be IO attempt site, right distal femur what appears to be IO attempt site. Overall frail and mild contractures noted. GENERAL: No edema Neuro: OTHER: Unresponsive, minimal response to deep painful stimuli Procedures Intubation sedative: Etomidate Mg Given: 35 paralytic: Rocuronium Mg Given: 35 Laryngoscope: fiber optic video scope ET Tube Size: 6.5 Tube Secured Depth (cm): 21 Tube Secured Location: teeth Tube Placement Confirmation: visualized tube passing through cords, equal breath sounds bilaterally, no breath sounds over epigastrium and confirmation by capnometry Patient Tolerated Procedure: well Intubation Complications: difficult intubation Additional Comments: First attempt with video laryngoscope blade size 3, able to visualize airway however unable to to direct the ET tube to the vocal cords. No desaturation and oxygen noted, subsequent bag valve ventilation and reattempt with direct laryngoscopy MAC 2 blade with successful ET tube placement. Posterior pharynx has noodles and what appears to be a piece of chicken. Attempted tube suction however not all pieces were retrieved. Course Vital Signs: Vital signs: Vital Signs Temperature 94.4 F L 08/25/22 22:29 Pulse Rate 62 08/25/22 22:29 Respiratory Rate 18 08/25/22 22:29 Blood Pressure 146/98 08/25/22 22:29 Pulse Oximetry 97 08/25/22 22:29 Oxygen Delivery Me thod Mechanical Ventil ation 08/25/22 20:41 Fraction of Inspir ed Oxygen 50 08/25/22 21:12 MDM - Cardiac Arrest/CPR Medical Decision Making 21-year-old female presenting postcardiac arrest. Patient did have prolonged downtime however ROSC achieved in the field. EMS reports food contents in the posterior airway and aborting intubation attempt in favor of i-gel which is in place. On initial exam patient is essentially unresponsive and quite frail/underdeveloped appearing. Breath sounds equal bilaterally and strong peripheral pulses with adequate blood pressure noted. To facilitate intubation with i-gel removal for definitive airway for predicted hospital course as well as continued food contents in the posterior airway with aspiration risk patient was given etomidate and rocuronium. Intubation as noted without complication with the exception of needing to use a direct laryngoscope as opposed to video laryngoscope (initial attempt) and 2 attempts required. No hypoxia during adán-intubation period. Post intubation oxygenation remained adequate and breath sounds clear and equal bilaterally. Laboratory studies are quite abnormal though interpretability is limited secondary to expected changes related to cardiac arrest. There is leukocytosis which is likely reactive in the absence of specific recent infectious symptoms, normal hemoglobin and platelet count. Metabolic panel with hyponatremia, hypokalemia, decreased bicarb, and increased anion gap which is likely secondary to lactic acidosis. Magnesium is adequate. Mild transaminitis which may reflect developing shock liver. Initial troponin is elevated. TSH elevated. Urinalysis obtained from cath sample with 25-40 RBCs and 25-40 WBCs, difficult to interpret in the absence of specific urinary symptoms. Plan to send for urine culture and blood cultures were obtained. Chest x-ray likely notes aspirated contents into the left lung. ET tube tip somewhat obscured by spinal hardware however appears in satisfactory position. Sedation with fentanyl and propofol ordered. Potassium replenishment ordered. ABG with acidemia, ventilator adjusted with increased respiratory rate and end-tidal CO2 is improved compared to PCO2 on ABG. Given this improvement I do not want to delay transfer (transfer crew is at bedside) for repeat ABG results. Patient likely requires bronchoscopy as well as possible input from pediatric critical care given comorbidities and developmental status. Ultimately she exceeds our capability. I discussed with our hospitalist and she is in agreement that patient is not appropriate for admission at our facility. Discussed with critical care at [facility] in [place] and patient to be transferred for higher level of care. Updated patient's mother and grandmother at bedside. They are agreeable with plan. Patient transferred in critical condition and requires rapid transfer via helicopter EMS. Medical Records I reviewed the patient's medical records. Lab Data I reviewed the patient's lab results. 08/25/22 20:20 08/25/22 20:20 Radiology Impressions Chest X-Ray 08/25/22 20:24 IMPRESSION: 1. ET tube tip is obscured by the thoracic posterior fusion hardware however terminates approximately 16 mm superior to the audra. 2. There is opacification at the left lung apex likely representing pneumonia. Laboratory Results WBC 25.6 10^3/uL (4.5-13.0) H 08/25/22 20:20 RBC 3.88 10^6/uL (4.1-5.3) L 08/25/22 20:20 Hgb 11.7 g/dL (11.5-15.3) 08/25/22 20:20 Hct 38.3 % (37.0-47.0) 08/25/22 20:20 MCV 98.7 fl (81-99) 08/25/22 20:20 MCH 30.2 pg (28.0-34.0) 08/25/22 20:20 MCHC 30.5 g/dL (30.0-36.0) 08/25/22 20:20 RDW 12.6 % (12.1-15.1) 08/25/22 20:20 Plt Count 230 10^3/cmm (130-400) 08/25/22 20:20 MPV 9.0 fL (7.4-10.4) 08/25/22 20:20 Lymph % (Auto) Not Reportable 08/25/22 20:20 [place] % (Auto) Not Reportable 08/25/22 20:20 Lymph # (Auto) Not Reportable 08/25/22 20:20 [place] # (Auto) Not Reportable 08/25/22 20:20 Total Counted 100 (0-100) 08/25/22 20:20 Atypical Lymphs % 1.0 % (0-5) 08/25/22 20:20 Absolute Neutrophils 14.1 10^3/cmm (1.4-6.5) H 08/25/22 20:20 Segmented Neutrophils 51 % 08/25/22 20:20 Abs Segm Neuts (Man) 13.1 10/cmm (1.6-7.1) H 08/25/22 20:20 Band Neutrophils 4.0 % 08/25/22 20:20 Abs Band Neuts (Man) 1.0 10^3/cmm (0.0-1.2) 08/25/22 20:20 Absolute Lymphocytes 6.9 10^3/cmm (1.2-3.4) H 08/25/22 20:20 Lymphocytes (Manual) 26 % 08/25/22 20:20 Monocytes (Manual) 2.0 % 08/25/22 20:20 Absolute Monocytes 0.5 10^3/cmm (0.1-0.6) 08/25/22 20:20 Eosinophils (Manual) 0 % 08/25/22 20:20 Absolute Eosinophils 0.0 10^3/cmm (0.0-0.7) 08/25/22 20:20 Basophils (Manual) 0.0 % 08/25/22 20:20 Absolute Basophils 0.0 10^3/cmm (0.0-0.2) 08/25/22 20:20 Metamyelocytes 6.0 % 08/25/22 20:20 Myelocytes 10.0 % 08/25/22 20:20 Pathologist Review Yes 08/25/22 20:20 Blast Cells General Assignment Reporter 08/25/22 20:20 Platelet Estimate Normal (Normal) 08/25/22 20:20 Tear Drop Cells 1+ 08/25/22 20:20 [place] Cells 1+ H 08/25/22 20:20 Specimen Type Arterial 08/25/22 20:49 Sample Site Radial, right 08/25/22 20:49 ABG pH 6.96 (7.35-7.45) L* 08/25/22 20:49 ABG pCO2 52.6 mmHg (35-45) H 08/25/22 20:49 ABG pO2 161.0 mmHg (80.0-100.0) H 08/25/22 20:49 ABG HCO3 11.7 mmol/L (22-26) L 08/25/22 20:49 ABG Base Excess -20.2 mmol/L (-2.0-2.0) L 08/25/22 20:49 Edy Test Pos 08/25/22 20:49 Hematocrit 39.0 % (37-47) 08/25/22 20:49 O2 Delivery Device Vent 08/25/22 20:49 FiO2 50.0 % 08/25/22 20:49 Tidal Volume 0.17 08/25/22 20:49 PEEP 5.0 cmH20 08/25/22 20:49 Claim Service Representative ID [id number] 08/25/22 20:49 Sodium 134 mmol/L (136-145) L 08/25/22 20:20 Potassium 3.0 mmol/L (3.5-5.1) L 08/25/22 20:20 Chloride 97 mmol/L (98-107) L 08/25/22 20:20 Carbon Dioxide 10 mmol/L (22-29) L 08/25/22 20:20 Anion Gap 30.0 (5-19) H 08/25/22 20:20 BUN 5 mg/dL (6-20) L 08/25/22 20:20 Creatinine 0.8 mg/dL (0.5-0.9) 08/25/22 20:20 GFR Calculation 92.4 mL/min (90-130) 08/25/22 20:20 Glucose 331 mg/dL (65-115) H 08/25/22 20:20 Calculated Osmolality 288 mOsm/kg (285-295) 08/25/22 20:20 Lactic Acid 12.2 mmol/L (0.5-2.2) H* 08/25/22 20:20 Calcium 8.5 mg/dL (8.5-10.5) 08/25/22 20:20 Magnesium 2.3 mg/dL (1.7-2.2) H 08/25/22 20:20 Total Bilirubin 0.2 mg/dL (0.15-1.2) 08/25/22 20:20 AST 67 U/L (0-32) H 08/25/22 20:20 ALT 54 U/L (0-33) H 08/25/22 20:20 Alkaline Phosphatase 276 U/L (35-105) H 08/25/22 20:20 Troponin T Baseline 41 ng/L (0-10) H 08/25/22 20:20 Total Protein 6.6 g/dL (6.6-8.7) 08/25/22 20:20 Albumin 3.1 g/dL (3.5-5.2) L 08/25/22 20:20 Globulin 3.5 g/dL (1.3-4.6) 08/25/22 20:20 TSH 5.71 uIU/mL (0.27-4.20) H 08/25/22 20:20 Urine Color Yellow (Yellow) 08/25/22 20:55 Urine Appearance Sl hazy (CLEAR) A 08/25/22 20:55 Urine pH 8 (5-7) H 08/25/22 20:55 Ur Specific [place] 1.010 (1.005-1.030) 08/25/22 20:55 Urine Protein 1+ (Negative) H 08/25/22 20:55 Urine Glucose (UA) 2+ (Normal) H 08/25/22 20:55 Urine Ketones Negative (Negative) 08/25/22 20:55 Urine Blood 2+ (Negative) H 08/25/22 20:55 Urine Nitrate Negative (Negative) 08/25/22 20:55 Urine Bilirubin Neg (Negative) 08/25/22 20:55 Prot Sulfosalicylic Acd Positive (Negative) 08/25/22 20:55 Urine Urobilinogen Norm mg/dL (Negative) 08/25/22 20:55 Ur Leukocyte Esterase Trace (Negative) H 08/25/22 20:55 Urine RBC 25-40 /hpf (0-2) H 08/25/22 20:55 Urine WBC 25-40 /hpf (0-5) H 08/25/22 20:55 Ur Squamous Epith Cells 0-4 /hpf (0-5) H 08/25/22 20:55 Amorphous Sediment Not Reportable 08/25/22 20:55 Urine Bacteria 2+ /hpf (NONE) H 08/25/22 20:55 Urine Mucus 2+ /hpf 08/25/22 20:55 Critical Care Time Critical Care Time: Critical Care Time: Yes Total Critical Care Time: 80 Attestation: Due to a high probability of clinically significant, possibly life threatening deterioration, the patient required my highest level of attention and preparedness to intervene emergently and I personally spent this critical care time directly and personally managing the patient. This critical care time included obtaining a history; examining the patient; pulse oximetry; ordering and review of laboratory and imaging studies; arranging urgent treatment with development of a management plan; evaluation of patient's response to treatment; frequent reassessment; and, discussions with other providers as applicable. It was exclusive of separately billable procedures. Primary system involved is Discharge Plan Discharge Patient Disposition: Xfer Short-Term Hosp Clinical Impression: Cardiac arrest, Aspiration of food, Leukocytosis, unspecified, Acute respiratory failure with hypoxia and hypercapnia, Acidosis, lactic, Hypokalemia, Transaminitis, Sacral ulcer Condition: Stable Referrals: Eden Lackey DO [Primary Care Provider] - Print Language: Eritrean Coding Level of Care Code ED Information Systems Coordinator for Mari Verdugo
[2022-08-25 20:40] LABS: Hematocrit 38.3 % (37.0-47.0); Hemoglobin 11.7 g/dL (11.5-15.3); Mean Corpuscular HGB Conc 30.5 g/dL (30.0-36.0); Mean Corpuscular Hemoglobin 30.2 pg (28.0-34.0); Mean Corpuscular Volume 98.7 fl (81-99); Platelet Count 230 10^3/cmm (130-400); Red Blood Count 3.88 10^6/uL (4.1-5.3); Red Cell Distribution Width 12.6 % (12.1-15.1); White Blood Count 25.6 10^3/uL (4.5-13.0)
[2022-08-25] MEDS: propofol 1,000 MG/100 ML INJ 1.1 MG IV (20:40)
[2022-08-25] MEDS: rocuronium 10 mg/mL INJ 5mL 50 MG (20:42)
[2022-08-25] MEDS: etomidate 10 ML 20 MG (20:43)
[2022-08-25 20:48] LABS: Slide Review Slide Review Perform
[2022-08-25 20:55] LABS: Troponin(5th) Baseline 41 ng/L (0-10)
[2022-08-25 21:00] LABS: Alanine Aminotransferase 54 U/L (0-33); Albumin Level 3.1 g/dL (3.5-5.2); Alkaline Phosphatase 276 U/L (35-105); Aspartate Amino Transferase 67 U/L (0-32); Blood Urea Nitrogen 5 mg/dL (6-20); Calcium 8.5 mg/dL (8.5-10.5); Carbon Dioxide 10 mmol/L (22-29); Chloride 97 mmol/L (98-107); Globulin 3.5 g/dL (1.3-4.6); Glomerular Filtration Rate 92.4 mL/min (90-130); Glucose 331 mg/dL (65-115); Magnesium 2.3 mg/dL (1.7-2.2); Osmolality Calculated 288 mOsm/kg (285-295); Sodium 134 mmol/L (136-145); Thyroid Stimulating Hormone 5.71 uIU/mL (0.27-4.20); Total Bilirubin 0.2 mg/dL (0.15-1.2); Total Protein 6.6 g/dL (6.6-8.7)
[2022-08-25 21:02] LABS: ABG PCO2 52.6 mmHg (35-45); ABG PH Result 6.96 (7.35-7.45); Base Excess ABG -20.2 mmol/L (-2.0-2.0); Blood Gas Allen Test Pos; Blood Gas Sample Site Radial, right; Blood Gas Sample Type Arterial; Blood Gas Tidal Volume 0.17; HCO3 ABG 11.7 mmol/L (22-26); Oxygen Device VENT
[2022-08-25 21:08] LABS: Lactic Sepsis W/Reflex 12.2 mmol/L (0.5-2.2)
[2022-08-25 21:19] LABS: Absolute Segmented Neutrophil 13.1 10/cmm (1.6-7.1); Eosinophils 0 %; Lymphocytes 26 %; Lymphocytes Absolute 6.9 10^3/cmm (1.2-3.4); Monocytes Absolute 0.5 10^3/cmm (0.1-0.6); Segmented Neutrophils 51 %; Total Cells Counted 100 (0-100)
[2022-08-25 21:20] LABS: Absolute Neutrophil 14.1 10^3/cmm (1.4-6.5); Platelet Estimate Normal (Normal)
[2022-08-25 21:21] LABS: Burr Cells 1+; Pathology Refferal Yes; Tear Drop Cells 1+
[2022-08-25 21:34] LABS: Bilirubin Urine Neg (Negative); Blood Urine 2+ (Negative); Glucose Urine UA 2+ (Normal); Ketones Urine Negative (Negative); Nitrate Urine Negative (Negative); Protein Urine 1+ (Negative); Urine Appearance SL Hazy (CLEAR); Urine Color Yellow (Yellow); Urobilinogen Urine Norm (Negative); pH Urine 8 (5-7)
[2022-08-25 21:35] LABS: Add Urine Microscopic? YES; Leukocyte Esterase Urine Trace (Negative); Sulfosalicylic Acid Urine Positive (Negative)
[2022-08-25 21:36] LABS: WBC Urine 25-40 /hpf (0-5)
[2022-08-25 21:37] LABS: Bacteria Urine 2+ /hpf; Mucus Urine 2+ /hpf; Squamous Epithelial Cell Urine 0-4 /hpf (0-5)
[2022-08-25 21:38] LABS: Add Urine Culture? Yes; RBC Urine 25-40 /hpf (0-2)
--- NOTE | 2022-08-25 22:11 | PC.NURSE ---
This nurse spoke with pt mother and grandmother regarding transfer to higher level of care facility. Pt mother distraught. Grandmother trying to verbally calm mother. Mother made the comments why are you not keeping her here? I'm not going to [facility], it's too late. And I don't want them calling me at 2 o'clock in the morning. I need my sleep if I got to go up there tomorrow. Pt mother also upset that pt is being transferred to [facility], all her care has been at [facility], I don't want them calling me and waking me up to ask me questions . Pt mother also upset because staff cut pt clothes off on pt arrival to trauma bay. Explained to mother that it is standard practice to have complete access in the quickest manner of time when a pt is in critical condition. Pt grandmother reassured mother that she will supply a new set of clothes when pt is discharged.
[2022-08-25 22:23] LABS: Reflex Lactate Order REFLEX LACTIC ORDERD
--- NOTE | 2022-08-25 22:24 | PC.NURSE ---
Pt arrived to ED via EMS post code. ROSC obtained in field. Pt intubated enroute. 2004 arrival. 17.5 etomidate given 2017. 3.5 Rocc given 2018. Both per verbal order by MD in room. ET tube placed at the teeth. OG tube placed after. Both confirmed via X-ray. Propofol drip initiated at 5 mcg/min. Perez catheter placed with 100 mL urine return. IO placed by EMS removed at this time. Fentanyl drip initiated at 25 mcg/min per protocol. Pt departed from facility at 2200, stable upon departure.
--- NOTE | 2022-08-26 03:25 | PC.NURSE ---
RN attempted to obtain history of current situation from mother. Mother states that she was feeding her daughter chicken noodle soup tonight when she began to choke. Mother states that choking is not uncommon for her daughter during feedings, but she began to have a seizure after she began to choke. Mother displayed poor coping skills with situation, showing signs of frustration and irritability. Upon having the seizure after choking, mother called EMS. Mother showed concern for pt not having taken her seizure medicine tonight. RN explained actions made since arrival to ED per previous note by this RN, but mother did not show interest, stating, I know what is wrong with her. She choked on the soup and had a seizure. What are we going to do now? RN told mother the plan of care to transfer to higher facility due to critical condition of pt. Mother stated that she would not be able to stay with daughter numerous times due to having things to take care of tonight. RN informed mother that she would be updated as transfer situation is confirmed.
--- NOTE | 2022-08-26 03:33 | PC.NURSE ---
EMS stated that upon arrival to scene, pt was found unresponsive in cardiac arrest. CPR initiated at this time as bradycardic PEA found. EMS did not state order precisely, but said that pt was defibrillated 2x and found rhythm change of asystole. 7 rounds of epinephrine were given on scene before ROSC achieved. EMS were unable to intubate pt with ET tube on scene due to amount of aspirated chicken noodle in throat. I-gel was placed. EMS placed IO in R distal femur, running 1 L NS through. Attempt of IO in L humerus noted by assessment but unsuccessful. 18 G PIV placed by EMS in LAC with NS 1 L running. EMS arrival to ED at 2004.
== END 2022-08-25 22:30 | disposition short-term general hospital (02) ==
PROVIDERS: Emergency Provider Emergency Medicine; PCP Family Medicine
DX: I46.9 Cardiac arrest, cause unspecified (principal); T17.228A Food in pharynx causing other injury, initial encounter; D72.829 Elevated white blood cell count, unspecified; J96.02 Acute respiratory failure with hypercapnia; J96.01 Acute respiratory failure with hypoxia; E87.20 Acidosis, unspecified; E87.6 Hypokalemia; R74.01 Elevation of levels of liver transaminase levels; X58.XXXA Exposure to other specified factors, initial encounter
CPT/HCPCS: 36600; 71045; 80053; 80503; 81001; 82803; 83605; 83735; 84443; 84484; 85007; 85025; 87040; 87086; 94002; 96374; 96375; 99291; J2704; J3010; J3490